=== PATIENT | female | born 1980 | race Caucasian/White ===

== ENCOUNTER 2016-10-27 17:39 | Emergency (ER) | payer BC ==
[~2016-10-27 17:39] MED LIST: *UNABLE3; ALTA2.5 PO; ALTA5 PO; APRES10B PO; APRES25 PO; ASA5GR PO; ASAB PO; BRILINTA90 MG PO; CAT1 PO; COREG12 PO; COREG3 PO; COREG6 PO; EFFIENT10 PO; FLEX PO; HCTZ25B PO; HYDROCHLOROT12.5 MG PO; HYDROCHLOROT25 MG PO; IMDUR60 PO; K-TABS10 MEQ PO; LIPITOR40 PO; LIPITOR80 MG PO; LISINOPRIL40 MG PO; LOP25 PO; LORTAB10 PO; LOTREL1 CA2 PO; MONODOX100 MG PO; NEUR300 PO; NITROII10C TOP; NITROSTAT0.4 MG SL; NORCO1 TA1 PO; NORV10 PO; NTG150 SL; PLAVIX PO; PRAVACHOL40 MG PO; PRIN10 PO; PRIN20 PO; PRIN5 PO; RAN500 PO; SPIRO25 PO; TEG200 PO; ZANTAC150 MG PO; ZOCOR40 PO
[2016-10-27 18:13] LABS: BASOPHILS 0.4 %; BASOPHILS ABSOLUTE 0.05 10/3/uL (0.0-0.16); EOSINOPHILS 0.7 %; EOSINOPHILS ABSOLUTE 0.09 10/3/uL (0.0-0.53); HEMATOCRIT 37.5 % (36.0-48.0); HEMOGLOBIN 10.9 g/dL (12.0-16.0); IMMATURE GRANULOCYTES 0.2 %; IMMATURE GRANULOCYTES ABSOLUTE 0.03 10/3/uL (0.0-0.11); LYMPHOCYTES 18.7 %; LYMPHOCYTES ABSOLUTE 2.38 10/3/uL (0.67-4.30); MEAN PLATELET VOLUME 9.4 fL (9.2-13.0); MONOCYTES 5.9 %; MONOCYTES ABSOLUTE 0.75 10/3/uL (0.21-1.20); NEUTROPHILS 74.1 %; RBC DISTRIBUTION WIDTH 17.5 % (12.0-16.0); RED CELL COUNT 5.14 10/6/uL (4.0-5.6); WHITE BLOOD CELLS 12.7 10/3/uL (4.5-10.5)
[2016-10-27 18:19] LABS: MANUAL DIFF NO %; MEAN CORPUS HGB CONC 29.1 g/dL (32.0-36.0); MEAN CORPUSCULAR HEMOGLOB 21.2 pg (26.0-34.0); PLATELET COUNT 331 10/3/uL (150-400)
[2016-10-27 18:22] LABS: INTERNATIONAL NORMAL RATI 1.3 UNITS (-); PARTIAL THROMBO TIME 29.5 SEC (22.5-37.2)
[2016-10-27 18:28] LABS: PROTIME (NOT ORD) 16.2 SEC (12.0-14.5)
[2016-10-27 18:31] LABS: BUN (BLOOD UREA NITROGEN) 10 MG/DL (6-23); CALCIUM, SERUM 8.6 MG/DL (8.5-10.4); CHEST PAIN PROFILE TAT 0 Hrs 24 Mins; CHLORIDE, SERUM 103 MMOL/L (96-112); CO2 (CARBON DIOXIDE) 27 MMOL/L (24-34); CREATININE 1.09 MG/DL (0.55-1.02); GFR AFRICAN AMERICAN 75 ML/MIN (>=60); GFR NON AFRICAN AMERICAN 64 ML/MIN (>=60); GLUCOSE, SERUM 136 MG/DL (60-99); POTASSIUM, SERUM 3.5 MMOL/L (3.5-5.3); SODIUM, SERUM 139 MMOL/L (135-148); TROPONIN I 0.12 NG/ML (<0.05)
[2016-10-27 20:12] LABS: ANISOCYTOSIS 1+ (5-10/OIF) (0-5/OIF); HYPOCHROMIA 1+ (3-10/OIF) (0-2/OIF)
[2016-10-27 20:13] LABS: PLATELET ESTIMATE ADQ (ADEQUATE); POIKILOCYTOSIS 1+ (5-10/OIF) (0-5/OIF)
== END 2016-10-27 18:50 | disposition left against medical advice (07) ==
LOC: ER 17:39
PROVIDERS: Emergency Medicine
DX: Z53.21 Procedure and treatment not carried out due to patient leaving prior to being seen by health care provider (principal); Z88.1 Allergy status to other antibiotic agents; Z79.899 Other long term (current) drug therapy; Z79.82 Long term (current) use of aspirin
CPT/HCPCS: 80048; 83735; 84484; 85025; 85610; 85730; 93005